=== PATIENT | male | born 1950 | race Caucasian/White ===

== ENCOUNTER 2017-10-15 08:08 | Day surgery (SDC) | payer OTHER, BC ==
[2017-10-14 08:03] VITALS: BMI 30.3
--- NOTE | 2017-10-15 09:46 | HP ---
Satellite [facility] - Chief Complaint Chief Complaint: right knee pain History Source: Patient - Past Medical History Allergies/Adverse Reactions: Allergies Allergy/AdvReac Type Severity Reaction Status Date / Time No Known Drug Allergies Allergy Verified 10/14/17 08:07 - Current Medications Current Medications: Home Medications Medication Instructions Recorded Fluticasone/Salmeterol [Advair 1 each IH PRN PRN 10/14/17 250-50 Diskus] Losartan Potassium 12.5 mg PO DAILY 10/14/17 Satellite Physical Exam - Physical Examination Vital Signs: Vital Signs Period Temp Pulse Resp BP Sys/Grigsby Pulse Ox Last 24 Hr 98.3 F 83 18 125/81 97 Extremities: Other (+ joint line tenderness) Satellite Impression/Plan - Impression/Plan Impression: internal derangement right knee Operative Procedure: arthroscopy right knee Date to be Performed: 10/15/17
[2017-10-15] MEDS ORDERED: MIDAZOLAM HCL 2 MG/2 ML SINGLE DOSE VIAL ONE (10:10)
[2017-10-15] MEDS ORDERED: BUPIVACAINE HCL/PF 0.5% (5MG/ML) 10 ML VIAL ONE (10:10)
[2017-10-15] MEDS ORDERED: LIDOCAINE 1%/EPI 1:100000 (20 ML MULTI DOSE VIAL) ONE (10:10)
[2017-10-15] MEDS ORDERED: BUPIVACAINE HCL/PF (5 MG/ML) 30 ML VIAL IJ ONE (10:35)
[2017-10-15] MEDS ORDERED: LIDOCAINE 1%/EPI 1:100000 (20 ML MULTI DOSE VIAL) IJ ONE (10:35)
[2017-10-15] MEDS ORDERED: DEXAMETHASONE SOD PHOSPHATE 4 MG/1 ML VIAL ONE (10:39)
[2017-10-15] MEDS ORDERED: ONDANSETRON 4 MG/2 ML VIAL IVPUSH PRN (10:59)
[2017-10-15] MEDS ORDERED: oxyCODONE HCL 5 MG TABLET PO PRN (10:59)
--- NOTE | 2017-10-15 11:09 | OP ---
Operative Note - Note: Operative Date: 10/15/17 Pre-Operative Diagnosis: right medial meniscus tear Operation: arthroscopy right knee with partial MM Post-Operative Diagnosis: Same as Pre-op Surgeon: Barrington Altamirano Anesthesia: General Operative Report Dictated: Yes
--- NOTE | 2017-10-15 11:53 | OP ---
DATE OF OPERATION: 10/15/2017 PREOPERATIVE DIAGNOSIS: Right medial meniscus tear. POSTOPERATIVE DIAGNOSIS: Right medial meniscus tear. PROCEDURE: Right knee arthroscopy, partial medial meniscectomy. 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 ANESTHESIA: General with LMA. CLOSURE: 4-0 nylon. COMPLICATIONS: None. CONDITION: To recovery room in stable condition. DESCRIPTION OF OPERATIVE PROCEDURE: Patient was taken to the operating room on October 15, 2017. General anesthesia with LMA was administered by the anesthesiologist. The right lower extremity was prepped and draped in the usual sterile fashion. The medial and lateral infrapatellar portal sites were infiltrated with 1% Xylocaine with epinephrine. Both portals were then made with a 15 blade followed by a blunt trocar. The scope was placed in the lateral infrapatellar portal and up into the suprapatellar pouch. The knee was inflated with a cocktail of 10 mL of 1% Xylocaine, 10 mL of 0.5% Marcaine, and 20 mL of arthroscopic saline. This was allowed to sit in the knee for a few minutes to allow the anesthetic to work intraarticularly. The scope was placed in the lateral infrapatellar portal and up into the suprapatellar pouch. The pouch was visualized to be clean. The medial and lateral gutters were visualized to be clean. The undersurface of the patella and trochlea were visualized to be intact. With valgus stress on the knee, the medial compartment was entered. The medial meniscus was visualized, probed, and found to have a complex tear of the posterior horn. This was debrided back to smooth stable meniscal tissue using a meniscal biter and arthroscopic shaver. The medial femoral condyle was run and found to be intact as well as the medial tibial plateau. At 90 degrees, the ACL was visualized, probed, and found to be intact. In the figure 4 position, the lateral compartment was entered. The lateral meniscus was visualized, probed, and found to be intact. The lateral femoral condyle was run and found to be intact as was the lateral tibial plateau. The knee was irrigated with copious amounts of irrigation and then the fluid was drained. The inferomedial portal was closed then with 4-0 nylon. Prior to pulling the trocar from the lateral infrapatellar portal, 20 mL of 0.5% Marcaine was infused into the knee for postoperative analgesia. The trocar was then pulled and the incision was closed with 4-0 nylon suture. A sterile pressure dressing was applied. Patient awakened from anesthesia and transferred to recovery in stable condition. No complication. Estimated blood loss negligible. BARRINGTON ALTAMIRANO M.D. REGGIE/[id number]
[2017-10-15 12:27] VITALS: TEMP 97.6
[2017-10-15 18:03] VITALS: BP 120/63; PULSE 76
--- NOTE | 2017-10-16 17:38 | PATH ---
Surgical Pathology Report Patient Name: ANGELA BENDER [facility]. Rec. #: [id number] /Age/Gender: 1950 (Age: 67) / M Account: [id number] Location: [facility] SURGICAL Taken: 10/10/2017 Received: 10/15/2017 Reported: 10/16/2017 Physicians: Barrington Altamirano M.D. Specimen(s) Received RIGHT KNEE SHAVINGS Clinical History Right knee tear Final Diagnosis KNEE SHAVINGS, RIGHT, ARTHROSCOPY: FRAGMENTS OF CARTILAGE, DENSE FIBROCONNECTIVE TISSUE, ADIPOSE TISSUE, AND REACTIVE SYNOVIUM. Electronically Signed Berenice Lake M.D. Gross Description Received in formalin, labeled "right knee shavings," is a 4.5 x 4.0 x 0.5 cm. aggregate of blackmon-yellow soft tissue fragments. A product sales representative portion is submitted in one cassette. /10/15/2017 saudi10/15/2017
== END 2017-10-15 13:40 | disposition home or self-care (01) ==
LOC: JASU-SURG 08:08
PROVIDERS: ATTEND Orthopaedic Surgery
PROC: 0SBC4ZZ Excision of Right Knee Joint, Percutaneous Endoscopic Approach (ICD-10-PCS; principal; 2017-10-15 09:30)
DX: S83.241A Other tear of medial meniscus, current injury, right knee, initial encounter (principal); Y93.9 Activity, unspecified; Y92.9 Unspecified place or not applicable; I10 Essential (primary) hypertension; J45.909 Unspecified asthma, uncomplicated
CPT/HCPCS: 88304-TC; 94760

== ENCOUNTER 2018-05-06 09:18 | Emergency (ER) | payer OTHER, BC ==
--- NOTE | 2018-05-06 09:21 | PDOC ---
History of Present Illness - General Chief Complaint: Lightheaded Stated Complaint: LIGHT HEADED ELEVATED BLOOD PRESSURE - History of Present Illness Initial Comments: 05/06/18 09:49 Chief complaint: Lightheadedness History of present illness: Patient felt momentary lightheadedness this morning while at work. 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 Lightheadedness was accompanied by a sensation in the central upper chest that he is unable to describe. He said it was not a "pressure" or just an unusual sensation. There was no nausea, diaphoresis, shortness of breath, or radiation of the pain to the jaw or arms. It subsided within moments, as noted. Review of systems: He has been controlled on losartan HCTZ 100/12.5 for number of years until approximately 2 weeks ago, when numerous measurements of his blood pressure at home showed elevated readings in the 150/100 range. It has been as high as 160/105. He has had no other chest pain, shortness of breath, abdominal pain, nausea, vomiting, diarrhea, visual or focal neurologic symptoms , unsteadiness of gait, lightheadedness, dizziness, or vertigo. He denies stress , anxiety, or depression. Past medical history: Mild hypertension always controlled in the 120/80 range on losartan/HCTZ once daily. Osteoarthritis prior orthopedic surgery on the knees. Denies known coronary artery disease, DC, CVA, PVD, diabetes, elevated cholesterol, or other metabolic diseases. 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 Denies tobacco alcohol or nonprescription drugs Family history: Reviewed and noncontributory. Specifically, no early coronary artery disease, DC, CVA, diabetes. However, mother had high blood pressure, but did not and early age Physical equal exam: Alert and oriented well-developed well-nourished no acute distress cheerful and cooperative. Denies lightheadedness or chest discomfort at present. Afebrile, vital signs normal except for mildly elevated blood pressure of 163/ 106. PERRLA 4 mm, fundi benign with sharp disc margins and good central venous pulsations, no hemorrhages or exudates, no AV nicking. ENT clear Neck supple without bruit mass or nodes Chest clear with full breath sounds bilaterally, no wheezes rales or rhonchi, no dullness at the bases CV S1 and S2 normal without murmur rub or gallop pulses full and symmetric no JVD or edema no bruits Abdomen soft nontender without mass or organomegaly Neurological C2 to 12 intact. Strength full and symmetric. No focal sensory or motor deficits. Gait stable and unimpaired. No vertigo is triggered by head movement or change of position Extremities no CCE Skin clear, no rash, adequate turgor and wet mucous membranes Impression: Gradually increasing blood pressure is measured at home. Has not been seen by his physician. Symptoms of lightheadedness today are unlikely due to to a pressure in the 150/100 range, more likely due to anxiety or worry about elevated readings. Chest discomfort was momentary, poorly described, and also probably anxiety related. Risk factors for coronary artery disease are likewise minimal Plan: EKG and enzymes. Observe. Monitor blood pressure. Adjust medication if necessary. Close follow-up primary physician. Cardiology referral. 05/06/18 09:58 Past History - Past Medical History Allergies/Adverse Reactions: Allergies Allergy/AdvReac Type Severity Reaction Status Date / Time No Known Drug Allergies Allergy Verified 05/06/18 09:19 Home Medications: Ambulatory Orders Labetalol HCl [Normodyne -] 100 mg PO BID #14 tablet 05/06/18 Losartan/Hydrochlorothiazide [Losartan-Hctz 100-12.5 mg Tab] 1 tab PO DAILY Anemia: No Asthma: Yes ("under control") Cancer: No Cardiac Disorders: No CVA: No COPD: No CHF: No Dementia: No Diabetes: No GI Disorders: No Disorders: No HTN: Yes Hypercholesterolemia: No Liver Disease: No Seizures: No Thyroid Disease: No - Surgical History Abdominal Surgery: No Appendectomy: No Cardiac Surgery: No Cholecystectomy: No Lung Surgery: No Neurologic Surgery: No Orthopedic Surgery: Yes (left knee arthroscopy) - Suicide/Smoking/Psychosocial Hx Smoking History: Never smoked Hx Alcohol Use: Yes (SOCIALLY) Drug/Substance Use Hx: No Substance Use Type: None Hx Substance Use Treatment: No ED Treatment Course - LABORATORY CBC & Chemistry Diagram: 05/06/18 10:00 05/06/18 10:00 Medical Decision Making - Medical Decision Making 05/06/18 11:50 EKG: Normal sinus rhythm. Normal axes and intervals. No ST-T wave changes. Normal EKG CBC and chemistries including cardiac enzymes without significant abnormalities , although the alkaline phosphatase and the glucose are slightly elevated. The patient was made aware of these elevations and instructed to follow-up with his primary physician and recheck these values again. Patient has not had recurrent symptoms, his blood pressure is somewhat improved , although the diastolic remains in the 100-105 range. He is begun on additional medication and instructed to follow-up with his primary physician within 1 week for monitoring and medication adjustment. Also to return to the ER immediately if there are any recurrent symptoms including chest pain, shortness of breath, lightheadedness, dizziness, abdominal pain, nausea, or perspiration. Fully ambulatory and in no pain or other distress upon discharge with his to follow-up as directed *DC/Admit/Observation/Transfer Diagnosis at time of Disposition: Elevated blood pressure reading - Discharge Dispostion Disposition: HOME Condition at time of disposition: Improved Decision to Admit order: No - Prescriptions Prescriptions: Labetalol HCl [Normodyne -] 100 mg PO BID #14 tablet - Referrals - Patient Instructions Printed Discharge Instructions: DI for High Blood Pressure Additional Instructions: Rest today. Additional medication as prescribed Return to ER immediately if symptoms recur, or other symptoms develop such as chest pain, shortness of breath, nausea, perspiration, abdominal pain, or lightheadedness/dizziness. Otherwise follow-up with primary physician within 1 week to monitor blood pressure and adjust medications. - Post Discharge Activity Forms/Work/School Notes: Back to Work
[2018-05-06 09:41] VITALS: PULSE 88; TEMP 98.5; BMI 30.9
[2018-05-06 10:17] LABS: BASO % 1.1 % (0-2.0); EOS % 2.7 % (0-4.5); HEMATOCRIT 43.7 % (35.4-49); HEMOGLOBIN 14.5 GM/dl (11.7-16.9); LYMPH % 22.9 % (8-40); MCH 30.6 pg (25.7-33.7); MCHC 33.2 g/dl (32.0-35.9); MEAN CELL VOLUME 92.2 fl (80-96); MONO % 8.4 % (3.8-10.2); NEUT % 64.9 % (42.8-82.8); PLATELET COUNT 252 K/MM3 (134-434); RBC 4.74 M/mm3 (4.00-5.60); RDW 12.3 % (11.9-15.9); WHITE BLOOD COUNT 6.1 K/mm3 (4.0-10.8)
[2018-05-06 10:18] LABS: ALBUMIN 3.9 g/dl (3.5-5.0); ALK PHOS 106 U/L (32-92); ANION GAP 8 MMOL/L (8-16); BLOOD UREA NITROGEN 21 mg/dl (7-18); CALCIUM 9.6 mg/dl (8.4-10.2); CHLORIDE 99 mmol/L (98-107); CO2 26 mmol/L (22-28); CREATININE 1.1 mg/dl (0.6-1.3); GLUCOSE,RANDOM 139 mg/dl (74-106); POTASSIUM 3.9 mmol/L (3.5-5.1); SGOT/AST 26 U/L (10-42); SGPT/ALT 24 U/L (10-40); SODIUM 133 mmol/L (136-145); TOT PROT 7.1 g/dl (6.4-8.3)
[2018-05-06 11:43] VITALS: BP 153/102
[2018-05-06] MEDS ORDERED: LABETALOL HCL 100 MG TABLET (FP) PO ONE (11:44)
[2018-05-06] MEDS ORDERED: LABETALOL HCL 200 MG TABLET (FP) ONE (11:44)
--- NOTE | 2018-05-07 12:05 | EKG ---
Test Reason : Blood Pressure : / mmHG Vent. Rate : 075 BPM Atrial Rate : 075 BPM P-R Int : 170 ms QRS Dur : 084 ms QT Int : 384 ms P-R-T Axes : 038 006 029 degrees QTc Int : 428 ms NORMAL SINUS RHYTHM NORMAL ECG NO PREVIOUS ECGS AVAILABLE Confirmed by BOWEN COATES MD ([id number]) on 05/07/2018 12:05:35 PM Referred By: AMBIKA HADLEY Confirmed By:BOWEN COATES MD
== END 2018-05-06 12:03 | disposition home or self-care (01) ==
LOC: FER 09:18
DX: Z01.31 Encounter for examination of blood pressure with abnormal findings (principal)
CPT/HCPCS: 36415; 80053; 82550; 84484; 85025; 93005; 99282-25